=== PATIENT | male | born 1995 | race Hispanic/Latino ===

== ENCOUNTER → 2021-01-11 | Outpatient (CLI) | payer OTHER | END | disposition home or self-care (01) | LOC: RAH 13:19 | PROVIDERS: ATTEND Internal Medicine | DX: H70.891 Other mastoiditis and related conditions, right ear (principal); J34.2 Deviated nasal septum; J32.3 Chronic sphenoidal sinusitis; J32.1 Chronic frontal sinusitis; J32.2 Chronic ethmoidal sinusitis; J32.0 Chronic maxillary sinusitis; J32.4 Chronic pansinusitis | CPT/HCPCS: 70480 ==